=== PATIENT | female | born 1960 | race Caucasian/White ===

== ENCOUNTER 2017-05-22 08:05 | Emergency (ER) | payer OTHER ==
[~2017-05-22] VITALS: Ht 157.5 cm; Wt 67.0 kg
[2017-05-22 08:12] VITALS: TEMP 36.7; Ht 157.5 cm; Wt 67.0 kg
[2017-05-22] MEDS ORDERED: DIPHTHERIA/TETANUS/PERTUSSIS 0.5 ML SYR/VIAL IM. ONE (08:30)
--- NOTE | 2017-05-22 09:36 | DIAGNOSTIC IMAGING REPORT ---
RIGHT HAND 3 VIEWS HISTORY: dog bit; R middle finger COMPARISON: None. FINDINGS: There is no acute fracture or dislocation. Soft tissue swelling within the PIP joint of the right middle finger. Tiny ossific density adjacent to the volar aspect of the PIP joint of the right middle finger. This may be due to an old avulsion injury. IMPRESSION: 1. No definite acute fractures within the right hand. 2. Soft tissue swelling at the PIP joint of the right middle finger. There is also a punctate ossific density along the volar aspect of the PIP joint. This may represent an old avulsion injury. However, a punctate radiopaque foreign body could also have a similar appearance but is considered less likely. Electronically signed by: Gabriel Bueno M.D. 05/22/2017 9:34 AM Dictated Date/Time: 05/22/2017 9:31 AM
[2017-05-22] MEDS ORDERED: AMOX875T PO (10:01)
[2017-05-22] MEDS ORDERED: HYDR-5688 PO (10:01)
[2017-05-22 10:32] VITALS: BP 140/85; PULSE 82; O2SAT 98
--- NOTE | 2017-05-23 16:43 | EMERGENCY ROOM VISIT NOTE ---
ED Visit Note First contact with patient: 08:16 Chief Complaint: My dog bit me. History of Present Illness: Ms. Albright is a 56-year-old white female who ambulates into the ED complaining of a dog bite to the right middle finger. Patient reports her family dog is 15 years old and she was trying to help the great Oscar move the last night and he reached out and bit her right hand. She reports she's cleansed the wound 2 times with peroxide and water. Currently she is complaining of a throbbing-like discomfort over the PIP joint of the right middle finger. She rates this discomfort 7/10. The pain is nonradiating. The pain worsens with palpation and flexion and extension of the PIP joint. She has not identified any alleviating factors related to the pain. She has not taken any medication for pain prior to arrival at the hospital. She denies any associated symptoms including fever, chills, sweats, puslike drainage, red streaking, hand/finger weakness/numbness/tingling. Review of Systems: As noted above in history of present illness. Past Medical History: Pulmonary embolism, status post section. Current Medications: Patient denies. Allergies to Medications: Patient denies. Social History: Patient is currently employed; she feels safe in her home environment; she admits to tobacco and alcohol use. Tetanus Immunization Status: Patient reports out-of-date. Physical Examination: Vital Signs: Date Time Temp Pulse Resp B/P (MAP) Pulse Ox O2 Delivery O2 Flow Rate FiO2 05/22/17 10:32 82 16 140/85 98 05/22/17 08:12 36.7 98 18 147/92 98 Room Air GENERAL: 56-year-old female in mild distress due to pain, nontoxic-appearing, afebrile and hemodynamically stable. NEUROLOGICAL: Awake, alert and oriented to person, place and time. Answering questions appropriately and following commands. SKIN: Warm, dry and pink. Posterior Right Forearm: Patient has a combination of 2-3 puncture wounds and 2 superficial thickness lacerations measuring a total of 1.2 cm RIGHT UPPER EXTREMITY: Soft tissue injury as noted above. No gross bony deformity. No tenderness throughout the elbow, wrist or hand. Mild tenderness in swelling over the patient's dog bite injury. Full range of motion in flexion and extension of the elbow, pronation and supination of the forearm, flexion, extension and ulnar/and radial deviation against resistance. Able to distinguish light sensations through all dermatomes of the hand. Hand is warm and pink and capillary refill is brisk. ED Course: Patient is assessed as noted above. Patient's medication list was reviewed. Patient was offered pain medication and refused. Patient was given an Adacel booster IM. Right Hand X-Rays: Were read by myself and the radiologist showing no acute fractures or dislocations. Soft tissue swelling at the PIP joint of the middle finger. There is also a punctate calcification density along the volar aspect of the PIP joint of questionable old avulsion injury or possible foreign body. Patient's wound was cleansed with Betadine and irrigated with sterile water. Patient's wound was extensively explored and no foreign bodies were found. Clean bacitracin dressing was applied and the finger was placed into a metal finger splinted Patient was educated about tonight's findings and instructed on her treatment plan; she verbalizes understanding and agreement with this plan. Clinical Impression: Dog bite wounds to the right middle finger. Disposition: Patient discharged home in stable condition; prior to departure he was reassessed and subjectively reported feeling better and rated her discomfort 6/10. Plan: Comfort measures, wound care, and signs of infection were discussed with the patient. Patient was placed on a sliding pain scale of ibuprofen, acetaminophen and [place] ; she was given appropriate narcotic precautions and her name was checked in the state database and no red flags were noted. Patient was prescribed Augmentin 875 mg 2 times a day for 10 days for antibiotic coverage. Patient was encouraged to follow-up with personal physician or return emergency department in days and/or signs of infection.
== END 2017-05-22 10:15 | disposition home or self-care (01) ==
LOC: C.EDB 08:06
DX: S61.252A Open bite of right middle finger without damage to nail, initial encounter (principal); W54.0XXA Bitten by dog, initial encounter; Z86.711 Personal history of pulmonary embolism; Z72.0 Tobacco use; Z23 Encounter for immunization